=== PATIENT | female | born 1985 | race African-American/Black ===

== ENCOUNTER 2017-03-05 16:10 | Emergency (ER) | payer MEDICAID ==
[~2017-03-05] VITALS: Ht 157.5 cm; Wt 59.0 kg
[2017-03-05 16:31] VITALS: BP 135/81
[2017-03-05 17:47] LABS: Urine Bilirubin Negative (Negative); Urine Blood 1+ /uL (Negative); Urine Color Yellow (Yellow); Urine Glucose Normal (Normal); Urine Ketone Negative (Negative); Urine Mucus FEW (None Seen); Urine Nitrite Negative (Negative); Urine RBC 7 /hpf (0 - 4); Urine Squamous Epithelial Cell FEW /hpf (<5); Urine Urobilinogen Normal (Negative); Urine pH 5.5 (5.0-8.0)
== END 2017-03-05 18:20 | disposition home or self-care (01) ==
LOC: ER 16:21
DX: R30.0 Dysuria (principal); R39.15 Urgency of urination; F17.210 Nicotine dependence, cigarettes, uncomplicated; Z88.6 Allergy status to analgesic agent; Z88.8 Allergy status to other drugs, medicaments and biological substances
CPT/HCPCS: 81001; 81025

== ENCOUNTER 2023-10-03 10:18 | Emergency (ER) | payer MEDICAID ==
[~2023-10-03] VITALS: Ht 157.5 cm; Wt 73.0 kg
[2023-10-03 10:27] VITALS: BP 116/66; PULSE 83; RESP 16; O2SAT 97
== END 2023-10-03 12:56 | disposition left against medical advice (07) ==
LOC: ER 10:18
DX: S61.012A Laceration without foreign body of left thumb without damage to nail, initial encounter (principal); Z53.21 Procedure and treatment not carried out due to patient leaving prior to being seen by health care provider; W26.9XXA Contact with unspecified sharp object(s), initial encounter; Y93.89 Activity, other specified; Y92.89 Other specified places as the place of occurrence of the external cause; Y99.8 Other external cause status

== ENCOUNTER 2024-04-24 12:25 | Emergency (ER) | payer MEDICAID ==
[~2024-04-24] VITALS: Ht 157.5 cm; Wt 68.2 kg
[2024-04-24 14:18] VITALS: BP 126/87; PULSE 70; RESP 18; TEMP 97.8; O2SAT 100
[2024-04-24] MEDS ORDERED: IBUP1TAB5 PO (14:33)
[2024-04-24] MEDS ORDERED: BACDST PO (14:33)
--- NOTE | 2024-04-24 14:33 | ED.PDOC ---
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 She states it drains it comes back it drains it comes back today it started draining again as a lot of yellow pus she decided she want to come in and have it fixed. No fever no chills no other symptoms, Chief Complaint: Abscess Time Seen by MD: 13:50 Primary Care Provider: cait History of Present Illness: Nurses Notes, Medications, Allergies Allergies: Coded Allergies: Acetaminophen (Verified Allergy, Unknown, 12/20/13) Codeine (Verified Allergy, Unknown, 12/20/13) Hydrocodone (Verified Allergy, Unknown, 12/20/13) Home Meds Active Scripts Ibuprofen Micronized (Ibuprofen) 600 Mg Tab, 600 MG PO Q6HPRN PRN for 5 Days, #20 TAB Prov:CORNELL CAREY [employer] 2//25 Sulfamethoxazole W/Trimethopri (Bactrim Ds Tablet) 1 Tab Tb, 1 TAB PO BID for 7 Days, #14 TAB Prov:CORNELL C[employer]Y [employer] /25 Information Source: Patient Mode of Arrival: Ambulatory Past Medical History PAST MEDICAL HISTORY: Denies Surgical History: , Tubal Ligation 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 History: No Pertinent 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 History Family History Family History: Unknown Family History (Other): UTI Social History Smoker: Cigarettes, Less Than 1 Pack/Day Alcohol: Denies ETOH Use Drugs: Denies Drug Use Lives In: Home Integumetry: reports: lumps, others (abcess) Physical Exam General Appearance: No Apparent Distress, None HEENT: Normal ENT Inspection, PERRL/EOMI, Pharynx Normal, TMs Normal Neck: Non-Tender, Normal Inspection Respiratory: Lungs Clear, No Respiratory Distress, Normal Breath Sounds Cardiovascular: Regular Rate/Rhythm Breast Exam: Deferred Gastrointestinal: Normal Bowel Sounds, Soft Genitalia: Deferred Pelvic: Other Rectal: Deferred Extremities: Normal inspection, Normal range of motion Neurologic: Alert, Normal Affect, Normal Mood Cerebellar Function: NOT DONE Reflexes: NOT DONE Skin: Other (Small nodule consistent with sebaceous cysts versus early abscess to the left buttocks. Some fluctuance no erythema no warmth) Lymphatic: No Adenopathy Was a procedure done? Was a procedure done?: Yes Sedation Sedation?: No Incision and Drainage Incision and Drainage: Abscess Anesthetic: Lidocaine Preparation: Betadine Incision and Wound: Pus, Irrigated, Packed Informed consent obtained: Yes Risks/benefits/alt described: Yes Differential Diagnosis (INTG) Differential Diagnosis: Cellulitis X-Ray, Labs, Meds, VS Vital Signs Date Time Temp Pulse Resp B/P (MAP) Pulse Ox O2 Delivery O2 Flow Rate FiO2 04/24/24 14:18 70 18 100 Room Air 04/24/24 14:18 97.8 70 18 126/87 (100) 100 97.8 04/24/24 12:48 98.9 97 17 123/76 (92) 98 X-Ray, Labs, Meds, VS Comment Patient seen and examined by me. 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 States wants to have it removed. With consent obtained I was able to do a small I&D. Minimal drainage came out but I was able to pack it which will help it heal. I have instructed her to pull a little of the packing every day w hich will help it heal from the inside out I will also give antibiotics. Told her no longer under wear any irritating unaware until it is completely healed., Time of 1ST Reevaluation: 14:31 Reevaluation 1ST: Improved Patient Education/Counseling: Diagnosis, Treatment, Prognosis, Need For Follow Up Family Education/Counseling: Diagnosis, Treatment, Prognosis, Need For Follow Up Departure 1 Departure Time of Disposition: 14:34 Impression: Primary Impression: Abscess Disposition: 01 HOME / SELF CARE / HOMELESS Condition: Good Additional Instructions: Keep the area clean and dry Every day pull a little bit of the packing out Take the antibiotics as directed There anything unaware until healed e-Prescriptions Ibuprofen Micronized (Ibuprofen) 600 Mg Tab 600 MG PO Q6HPRN PRN for 5 Days, #20 TAB Prov: CORNELL C[employer] 04/24/24 Sulfamethoxazole W/Trimethopri (Bactrim Ds Tablet) 1 Tab Tb 1 TAB PO BID for 7 Days, #14 TAB Prov: CORNELL C[employer] 04/24/24 Discharged With: Self, Spouse Critical Care Note Critical Care Time?: No Stability Stability form required: No CORNELL C[employer]Y [employer] Apr 24, 2024 14:33
[2024-04-24] MEDS: IBUPROFEN 800 MG TAB PO ONE (14:52)
== END 2024-04-24 14:52 | disposition home or self-care (01) ==
LOC: ER 12:28
DX: L02.31 Cutaneous abscess of buttock (principal); F17.210 Nicotine dependence, cigarettes, uncomplicated; Z98.51 Tubal ligation status; Z98.890 Other specified postprocedural states; Z88.5 Allergy status to narcotic agent; Z88.8 Allergy status to other drugs, medicaments and biological substances
CPT/HCPCS: 10060